=== PATIENT | female | born 1945 | race Caucasian/White ===

== ENCOUNTER 2022-07-21 11:41 | Emergency (ER) | payer OTHER, MEDICARE ==
[2022-07-21] MEDS ORDERED: BEBTELOVIMAB (EUA) 175 MG/2 ML VIAL IVPUSH ONE (11:52)
[2022-07-21 11:53] VITALS: BP 158/70; PULSE 87; RESP 19; TEMP 98.6; BMI 34.5
[2022-07-21] MEDS ORDERED: ONDANSETRON 4 MG/2 ML VIAL IVPUSH ONE (12:51)
[2022-07-21] MEDS ORDERED: SODIUM CHLORIDE 0.9% 500 ML INFUS.BAG IV ONE (12:51)
[2022-07-21] MEDS ORDERED: ONDANSETRON 4 MG/2 ML VIAL ONE (12:53)
== END 2022-07-21 18:37 | disposition home or self-care (01) ==
LOC: JER 11:41 → JCOVINFU 11:41
PROC: 3E033GC Introduction of Other Therapeutic Substance into Peripheral Vein, Percutaneous Approach (ICD-10-PCS; principal; 2022-07-21)
PROC: 3E03329 Introduction of Other Anti-infective into Peripheral Vein, Percutaneous Approach (ICD-10-PCS; 2022-07-21)
PROC: 3E033GC Introduction of Other Therapeutic Substance into Peripheral Vein, Percutaneous Approach (ICD-10-PCS; 2022-07-21)
DX: U07.1 COVID-19 (principal)
CPT/HCPCS: 99284-25; M0222; Q0222